=== PATIENT | male | born 1990 | race Caucasian/White ===

== ENCOUNTER 2022-10-24 17:08 | Inpatient (IN) | payer MEDICAID ==
[2022-10-24] MEDS ORDERED: Sodium Chloride 0.9% 10 ML Syringe FLUSH PRN (17:21)
[2022-10-24] MEDS ORDERED: Acetaminophen 325 MG Tab PO PRN (17:21)
[2022-10-24] MEDS: HYDROmorphone 0.5 MG/0.5 ML Syringe IVPUSH PRN ×2 (17:42→23:11)
[2022-10-24] MEDS: Ondansetron 4 MG/2 ML SDV IV PRN (17:46)
[2022-10-24] MEDS: Sodium Chloride 0.9% 1,000 ML IV SCH (17:47)
[2022-10-24] MEDS ORDERED: Enoxaparin 40 MG/0.4 ML Syringe SUBCUT SCH (18:45)
[2022-10-24] MEDS: HYDROmorphone 1 MG/ML Syringe IVPUSH PRN (20:01)
[2022-10-24] MEDS: Nicotine 14 MG/24 Hr Patch TRDERM SCH (20:03)
[2022-10-24] MEDS: Piperacillin/Tazobactam 3.375 GM in Sodium Chloride 0.9% 50 ML IV SCH (20:03)
[2022-10-24] MEDS ORDERED: Acetaminophen 1,000 MG in Premix Bag 1 BAG IV ONE (23:29)
[2022-10-25] MEDS: Sodium Chloride 0.9% 1,000 ML IV SCH ×3 (00:39→23:31)
[2022-10-25] MEDS: Piperacillin/Tazobactam 3.375 GM in Sodium Chloride 0.9% 50 ML IV SCH ×3 (00:40→12:15)
[2022-10-25] MEDS: HYDROmorphone 1 MG/ML Syringe IVPUSH PRN ×3 (00:47→05:26)
[2022-10-25 05:00] LABS: ESTIMATED GFR 116 mL/min (>60)
[2022-10-25] MEDS ORDERED: Indocyanine Green 25 MG SDV INJECT ONE (08:00)
[2022-10-25] MEDS: Ondansetron 4 MG/2 ML SDV IV PRN (08:31)
[2022-10-25] MEDS: HYDROmorphone 0.5 MG/0.5 ML Syringe IVPUSH PRN (08:31)
[2022-10-25] MEDS ORDERED: Succinylcholine 200 MG/10 ML MDV ONE (09:28)
[2022-10-25] MEDS ORDERED: Rocuronium 50 MG/5 ML Vial ONE (09:28)
[2022-10-25] MEDS ORDERED: Glycopyrrolate 0.2 MG/ML 5 ML MDV ONE (09:28)
[2022-10-25] MEDS ORDERED: Propofol 200 MG/20 ML SDV ONE (09:28)
[2022-10-25] MEDS ORDERED: Ondansetron 4 MG/2 ML SDV ONE (09:28)
[2022-10-25] MEDS ORDERED: Neostigmine Methylsulfate 1 MG/ML 5 ML Syringe ONE (09:28)
[2022-10-25] MEDS ORDERED: Dexamethasone 4 MG/ML SDV ONE (09:28)
[2022-10-25] MEDS ORDERED: Bupivacaine 0.5%/EPINEPHrine 1:200,000 50 ML MDV ONE (10:12)
[2022-10-25] MEDS ORDERED: fentaNYL 250 MCG/5 ML SDV ONE ×2 (11:35→11:57)
[2022-10-25] MEDS ORDERED: Piperacillin/Tazobactam/Dext 3.375 GM in Premix Bag 1 BAG IV SCH (12:00)
[2022-10-25] MEDS: Nicotine 14 MG/24 Hr Patch TRDERM SCH (12:51)
[2022-10-25] MEDS ORDERED: Labetalol 20 MG/4 ML Syringe ONE (12:52)
[2022-10-25] MEDS ORDERED: Lactated Ringers 1,000 ML ONE (12:55)
[2022-10-25] MEDS ORDERED: Ketorolac 30 MG/ML SDV ONE (13:21)
[2022-10-25] MEDS ORDERED: fentaNYL 100 MCG/2 ML SDV ONE ×2 (13:23→13:33)
[2022-10-25] MEDS: oxyCODONE 5 MG Tab PO PRN ×2 (16:30→21:56)
[2022-10-25] MEDS ORDERED: HYDROmorphone 0.5 MG/0.5 ML Syringe IVPUSH ONE (19:27)
[2022-10-25] MEDS: Acetaminophen 500 MG Tab PO SCH (20:09)
[2022-10-26] MEDS: oxyCODONE 5 MG Tab PO PRN ×2 (02:07→08:36)
[2022-10-26] MEDS: Acetaminophen 500 MG Tab PO SCH ×2 (02:08→03:04)
[2022-10-26 07:53] LABS: ESTIMATED GFR 120 mL/min (>60)
[2022-10-26] MEDS: Ketorolac 15 MG/ML SDV IVPUSH SCH ×3 (08:36→19:06)
[2022-10-26] MEDS ORDERED: Amphetamine/Dextroamphetamine Salts 10 MG Cap.ER PO SCH (09:00)
[2022-10-26] MEDS: Enoxaparin 40 MG/0.4 ML Syringe SUBCUT SCH ×2 (09:45→11:04)
[2022-10-26] MEDS: Nicotine 14 MG/24 Hr Patch TRDERM SCH (09:45)
[2022-10-26] MEDS ORDERED: Amphetamine/Dextroamphetamine Salts 10 MG Tab PO ONE (11:45)
[2022-10-26] MEDS: Acetaminophen/HYDROcodone 325-5 MG Tab PO PRN ×2 (11:53→18:54)
[2022-10-26] MEDS ORDERED: Amphetamine/Dextroamphetamine Salts 10 MG Cap.ER PO ONE (16:26)
[2022-10-27] MEDS: Ketorolac 15 MG/ML SDV IVPUSH SCH (02:41)
[2022-10-27 05:29] LABS: ESTIMATED GFR 120 mL/min (>60)
[2022-10-27] MEDS ORDERED: Amphetamine/Dextroamphetamine Salts 10 MG Cap.ER PO SCH (06:00)
[2022-10-27] MEDS ORDERED: Amphetamine/Dextroamphetamine Salts 10 MG Tab PO SCH (06:00)
[2022-10-27] MEDS ORDERED: Magnesium Sulfate/Water 2 GM in Premix Bag 1 BAG IV ONE (08:00)
[2022-10-27] MEDS: Enoxaparin 40 MG/0.4 ML Syringe SUBCUT SCH (08:51)
[2022-10-27] MEDS: Nicotine 14 MG/24 Hr Patch TRDERM SCH (08:51)
[2022-10-27] MEDS: Acetaminophen/HYDROcodone 325-5 MG Tab PO PRN (08:51)
== END 2022-10-27 10:05 | disposition home or self-care (01) | DRG 417 ==
LOC: JP.MS 17:08 → OBSVTOIN 17:21 → JP.MS 17:21
PROVIDERS: ADMIT Student in an Organized Health Care Education/Training Program; ATTEND Student in an Organized Health Care Education/Training Program
PROC: 8E0ZXY6 Isolation (ICD-10-PCS; 2022-10-24)
PROC: 0FT44ZZ Resection of Gallbladder, Percutaneous Endoscopic Approach (ICD-10-PCS; principal; 2022-10-25)
PROC: 8E0W4CZ Robotic Assisted Procedure of Trunk Region, Percutaneous Endoscopic Approach (ICD-10-PCS; 2022-10-25)
DX: K81.0 Acute cholecystitis (principal); U07.1 COVID-19; F90.9 Attention-deficit hyperactivity disorder, unspecified type; K46.9 Unspecified abdominal hernia without obstruction or gangrene; F17.210 Nicotine dependence, cigarettes, uncomplicated; Z88.1 Allergy status to other antibiotic agents
CPT/HCPCS: 36415; 80053; 83735; 84100; 85025; 85027; 87040; 88304; 99222; 99231; A9270-GY; J0131; J0330; J1100; J1170; J1650; J1885; J2405; J2543; J2704; J2710; J3010; J3490; J7030; J7120; U0002